=== PATIENT | male | born 1980 | race Caucasian/White ===

== ENCOUNTER 2018-02-14 02:15 | Emergency (ER) | payer MEDICAID ==
[2018-02-14] MEDS ORDERED: IBUPROFEN 800 MG TAB PO ONE (02:20)
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
[2018-02-14 02:24] VITALS: BP 129/80
== END 2018-02-14 03:07 | disposition home or self-care (01) ==
DX: S30.0XXA Contusion of lower back and pelvis, initial encounter (principal); V03.90XA Pedestrian on foot injured in collision with car, pick-up truck or van, unspecified whether traffic or nontraffic accident, initial encounter; Y92.410 Unspecified street and highway as the place of occurrence of the external cause

== ENCOUNTER 2019-01-17 13:02 | Emergency (ER) | payer MEDICAID, OTHER ==
--- NOTE | 2019-01-17 13:47 | EDPHY ---
HPI/HX/ROS/PE/MDM Narrative: CHIEF COMPLAINT: Altered mental status HPI: The patient is a 38-year-old male with a history of polysubstance abuse and previous M1 hold. He was brought to the emergency department by his friend for concerns of paranoid statements made last night and paranoid agitated behavior. The patient admits to currently being on LSD and a benzodiazepine. He denies any specific complaint. REVIEW OF SYSTEMS: Aside from elements discussed in the HPI, a comprehensive 10-point review of systems was reviewed and is negative. Unreliable secondary to altered mental status. PMH: History of polysubstance abuse. History of depression and PTSD. SOCIAL HISTORY: Admits to active drug abuse. 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 He is mildly agitated but reasonably pleasant. ENT:Eyes are normal to inspection. ENT inspection normal. Neck: Normal inspection. Full range of motion. Respiratory:No respiratory distress. Breath sounds normal bilaterally. Cardiovascular: Regular rate and rhythm. Strong peripheral pulses. Normal cap refill. He is actively grunting in musical notes while I am listening to his heart. Abdomen:The abdomen is nontender to palpation. There are no peritoneal signs. There are normal bowel sounds. Back: Normal to inspection. No tenderness to palpation. Skin: Normal color. No rash. Warm and dry. Extremities: Normal appearance. Full range of motion. Neuro: No focal deficits. (Collin Gregory) ED Course: Patient admits to active polysubstance abuse and is positive for meth. He is not making any statements to suggest HI/SI, but clearly would be danger to himself at this point based on his mental status. I have placed him on a detainer here in the ED until his mental status improves. (Collin Gregory) I took over care of this patient at 9:[address] Collin Gregory. Case discussed in detail with him. This patient presented with paranoia and hallucinations after taking LSD and benzodiazepines. He is not suicidal. Plan is to allow him to sober and then reassess. At this time we do not think he needs a behavioral health evaluation. He is on an MIH. 11:00 p.m., plan is as above. Patient is to be re-evaluated when sober. Care turned over to Dr. Naman Barnes at this time. (Shannan Hansen) MDM: [id number]: Patient re-evaluated this time he has been sleeping here and been in emergency for 18 hr, initially came in somewhat agitated, admits to doing LSD, and benzodiazepines. The patient did receive Zyprexa and Ativan early evening any slept most the night. He is now up ambulatory to the bathroom. He denies suicidal ideation or homicidal ideation he denies wanting to hurt himself or anybody else. He contracts for safety. Denies any complaints this morning, states he was doing benzos and LSD. Denies SI or HI and dnies wanting to hurt himself or anyone else. (Naman Barnes) - Data Points Laboratory Results: Laboratory Results 01/17/19 13:43 01/17/19 13:43 Medications Given: Discontinued Medications Lorazepam (Ativan) 1 mg PO EDNOW ONE Stop: 01/17/19 14:04 Last Admin: 01/17/19 14:10 Dose: 1 mg Olanzapine (Olanzapine) 5 mg PO EDNOW ONE Stop: 01/17/19 14:04 Last Admin: 01/17/19 14:10 Dose: 5 mg General Time Seen by Provider: 01/17/19 13:20 Initial Vital Signs: Initial Vital Signs Temperature (C) 36.8 C 01/17/19 13:04 Heart Rate 108 H 01/17/19 13:04 Respiratory Rate 16 01/17/19 13:04 Blood Pressure 126/95 H 01/17/19 13:04 O2 Sat (%) 96 01/17/19 13:04 O2 Delivery Mode Room Air Allergies/Adverse Reactions: tramadol Allergy (Verified 02/14/18 02:22) Home Medications: Medication Instructions Recorded Xanax 04/18/16 Departure - Departure Disposition: Home, Routine, Self-Care Clinical Impression: Polysubstance abuse, Altered mental status Instructions: Polysubstance Abuse (ED) Referrals: Patient,NotPresent [Primary Care Provider] - As per Instructions
[2019-01-17 13:54] LABS: PLATELET COUNT 335 10^3/uL (150-400)
[2019-01-17] MEDS ORDERED: LORazepam 1 MG TAB PO ONE (14:03)
[2019-01-17] MEDS ORDERED: OLANZapine 5 MG TAB PO ONE (14:03)
[2019-01-18] VITALS: BP 128/84
== END 2019-01-18 07:22 | disposition home or self-care (01) ==
DX: F19.10 Other psychoactive substance abuse, uncomplicated (principal); R41.82 Altered mental status, unspecified
CPT/HCPCS: 80305; G0480

== ENCOUNTER 2019-02-11 14:11 | Emergency (ER) | payer MEDICAID ==
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
[2019-02-11 14:30] LABS: PLATELET COUNT 341 10^3/uL (150-400)
[2019-02-11 14:34] VITALS: BP 134/95
== END 2019-02-11 14:48 | disposition home or self-care (01) ==
LOC: EDUNIT#
DX: F10.129 Alcohol abuse with intoxication, unspecified (principal)
CPT/HCPCS: G0480